=== PATIENT | male | born 1935 | race Caucasian/White ===

== ENCOUNTER 2016-08-25 00:03 | Emergency (ER) | payer MEDICARE, OTHER ==
[~2016-08-25] VITALS: Ht 177.8 cm; Wt 72.7 kg
[~2016-08-25 00:03] MED LIST: ASPI-351 PO; CLOP75TA14 PO; ERGO400C PO; LISI10TA9 PO; METO50TA PO; MULT-64 PO; NITR0.4T SL; SMV40T PO; TUMS PO; VITE PO
[2016-08-25 00:11] VITALS: BP 210/100; RESP 16; O2SAT 98
--- NOTE | 2016-08-25 01:27 | ED.REPORT ---
HPI-General Illness Date of Service Aug 25, 2016 ED Provider: Jj Chavez MD Patient is a 80 year old male with a history of hypertension and coronary artery disease with prior cardiac stenting who presents to the ED with intermittent nosebleeds that began 3 days ago. Patient reports stuffing his nose with tissues, which sometimes halts the bleeding. He reports bleeding from both nostrils. The patient's is not actively bleeding on arrival to the ED, but it states that blood is still running down his throat. Patient denies any other sources of bleeding. Patient states that he has constant nasal drainage, which began after his stent was placed in 2009. Patient denies having any recent head trauma or history of head trauma. He is on aspirin daily but is not on any other blood thinning medications. Patient is found to be very hypertensive on arrival to the ED and admits that he stopped taking his blood pressure medication by choice. Nursing Notes Stated Complaint: NOSE BLEED Chief Complaint: ENT & Mouth Nursing Notes Reviewed: Yes Allergies: Coded Allergies: No Known Allergies (Unverified Allergy, Unknown, 08/25/16) Scheduled Aspirin-Expunged Drug, Do Not Renew! (Aspirin-Expunged Drug, Do Not Renew!) 325 Mg Tablet 325 MG PO DAILY Clopidogrel-Expunged Drug, Do Not Renew! (Plavix-Expunged Drug, Do Not Renew!) 75 Mg Tablet 75 MG PO DAILY Ergocalciferol-Expunged Drug, Do Not Renew! (Vitamin D-Expunged Drug, Do Not Renew!) 400 Unit Capsule 2,000 UNIT PO DAILY Lisinopril-Expunged Drug, Do Not Renew! (Lisinopril-Expunged Drug, Do Not Renew! ) 10 Mg Tablet 10 MG PO DAILY Metoprolol Tart-Expunged Drug, Do Not Renew! (Metoprolol Tart-Expunged Drug, Do Not Renew!) 50 Mg Tablet 50 MG PO BID Multivitamins-Expunged Drug, Do Not Renew! (Multivitamins-Expunged Drug, Do Not Renew!) 1 Each Tab.chew 1 EACH PO DAILY Nitroglycerin-Expunged Drug, Do Not Renew! (Nitroglycerin SL-Expunged Drug, Do Not Renew!) 0.4 Mg Tab.subl 0.4 MG SL Q5 mins x3 for CP Simvastatin-Expunged Drug, Choose New Med! (Simvastatin-Expunged Drug, Choose New Med!) 40 Mg Tablet 40 MG PO DAILY Tocopherol-Expunged Drug, Do Not Renew! (Vitamin E-Expunged Drug, Do Not Renew! ) 400 Unit Cap 400 UNIT PO DAILY Scheduled PRN Calcium Carbonate-Expunged Drug, Do Not Renew (Tums Chewable-Expunged Drug, Do Not Renew!) 500 Mg Tablet 500 MG PO PRN 1-2 tabs General Time Seen by MD: 01:27 Chief Complaint Other (nosebleed) Hx Obtained From: Patient Arrived By: Walk-in Sudden in Onset?: No Onset Occurred: 3 days ago Symptom Duration: Intermittent Severity: Current: No pain currently Severity: Maximum: Mild Recent Healthcare: No recent doctor visit, No recent hospitalization Similar Sx Previous: No Past Medical History Past Medical History coronary artery disease hypertension Reports: Hyperlipidemia Past Surgical History cardiac stents 3x in 2009 Smoking History Former Smoker Social History Other Social History: Good social support, Local resident Ambulatory Status Independent Review of Systems Full Review of Systems Ears / Nose / Throat: Reports: Nasal congestion, Nose bleeding GI: Denies: Bloody/tarry stool, Hematochezia Hematologic: Reports Bleeding Complete sys rev & neg: except as marked. Physical Exam Vital Signs Vital Signs Date Time Temp Pulse Resp B/P Pulse Ox O2 Delivery O2 Flow Rate FiO2 08/25/16 01:59 36.8 81 16 210/100 98 Room Air 08/25/16 00:11 36.8 81 16 210/100 98 Room Air Initial VS: Reviewed Head / Eyes: Atraumatic, Normocephalic, PERRL Neck: Supple, Full range of motion Extremities: Vascular intact, Neuro intact Skin: Warm, Dry, No cyanosis Neurologic: Alert, Oriented, Nonfocal Psychiatric: Mood/affect normal, Behavior normal, Normal thought content General/Constitutional: Awake, Alert, No acute distress ENT: Airway patent, Pharynx NL (no blood in the retropharynx) Dried blood in the left nostril. No active bleeding. Chronic fracture and deviation of nose and septum towards the right. Respiratory / Chest: No respiratory distress, No stridor Cardiovascular: Heart rate NL Re-Eval/Medical Decision Med Decision/Clinical Course 80-year-old with aspirin therapy ongoing for cardiac disease, presents with intermittent nosebleed, probably from the left. It is not bleeding presently. He has had chronic postnasal drip for the past two years, dating from a coronary intervention. I can see no possible relationship of the coronary intervention with his postnasal drip, but he is living in a travel trailer and may have exposure to mold or other allergen or irritants. Today case, as he is not bleeding presently, no intervention contemplated. Home with Afrin, a nasal clamp, and specific instructions. Return if these do not control any bleeding. Avoid bending over and supine posture. Follow-up with PCP. Prompt return if worse. Incidental discussion about his chronic postnasal drip resulted in a suggestion to try Nasalide, once this nosebleed is completely stabilized in a week or so. He will follow up with his PCP. Source of Hx: Old records Time of Eval: 01:36 Patient Status: Condition improved Re-Evaluation/Progress Note: Patient's bleeding has halted. He was given advice for treating his nosebleeds at home. Patient understands and agrees with the plan to be discharged home. Discharge instructions and follow-up discussed. All questions were addressed. Return to the ED warnings given. Counseled Regarding: Diagnosis, Need for follow-up, When/why to return to ED Discharge & Departure Primary Impression: Epistaxis Additional Impression: Allergic rhinitis Allergic rhinitis type: unspecified Qualified Code: J30.9 - Allergic rhinitis, unspecified Disposition: Home Discharge Condition All VS Reviewed: Yes Condition: Stable Patient Instructions: Epistaxis (ED) Additional Instructions: If you begin to bleed again, spray the involved nostril heavily with Afrin, and spit out any excess. Then clamp the nose uninterrupted for at least thirty minutes. If that does not control your bleeding, return here. Once the situation is stabilized, you may consider using a nasal steroid, such as Nasalide. This is available [id number] at any drugstore. Do not disturb your nose for the next twenty-four hours otherwise. Do not low dose in half or attempt to clear it until the clot is stabilized. Scribe Attestation Portions of this note were transcribed by Daisy Ferrari. I, Dr. Chavez personally performed the history, physical exam and medical decision-making; I reviewed and confirmed the accuracy of the information in the transcribed note. Signed by: Nadia Chilel, 08/25/2016 0320 Jj Chavez MD Aug 25, 2016 01:27 Daisy Ferrari Aug 25, 2016 01:39
[2016-08-25 01:59] VITALS: BP 210/100; PULSE 81; RESP 16; O2SAT 98
== END 2016-08-25 01:59 | disposition home or self-care (01) ==
LOC: SED 00:03
DX: R04.0 Epistaxis (principal); J30.9 Allergic rhinitis, unspecified; I11.9 Hypertensive heart disease without heart failure; I25.10 Atherosclerotic heart disease of native coronary artery without angina pectoris; E78.5 Hyperlipidemia, unspecified; Z95.5 Presence of coronary angioplasty implant and graft; Z87.891 Personal history of nicotine dependence